=== PATIENT | female | born 1980 | race Caucasian/White ===

== ENCOUNTER 2018-11-13 08:56 | Day surgery (SDC) | payer OTHER ==
[2018-11-13] MEDS ORDERED: PROPOFOL 60 ML (10:34)
[2018-11-13] MEDS ORDERED: LIDOCAINE 2% (SDV) 5 ML INJ (10:34)
[2018-11-13] MEDS ORDERED: HYDROmorphONE 1 MG/5 ML IV SYRINGE IV ×2 (11:30)
[2018-11-13] MEDS ORDERED: DIPHENHYDRAMINE 50 MG INJ IV (11:30)
[2018-11-13] MEDS ORDERED: ONDANSETRON 4 MG INJ IV (11:30)
[2018-11-13] MEDS ORDERED: FENTAnyl 50 MCG/ML VIAL IV (11:30)
[2018-11-13] MEDS ORDERED: METOCLOPRAMIDE 10 MG INJ IV (11:30)
== END 2018-11-13 14:48 | disposition home or self-care (01) ==
LOC: GIL 08:56
DX: R19.4 Change in bowel habit (principal); D12.5 Benign neoplasm of sigmoid colon; E66.01 Morbid (severe) obesity due to excess calories; Z68.39 Body mass index [BMI] 39.0-39.9, adult; K64.8 Other hemorrhoids
CPT/HCPCS: 45380; 84703; 88305